=== PATIENT | female | born 1995 | race Caucasian/White ===

== ENCOUNTER 2022-08-24 13:22 | Emergency (ER) | payer SELFPAY ==
[~2022-08-24] VITALS: Ht 157.5 cm; Wt 52.3 kg
[2022-08-24 13:28] VITALS: TEMP 97.9
[2022-08-24] MEDS ORDERED: CLEOCIN HCL300 MG PO (15:31)
[2022-08-24 16:01] VITALS: BP 105/75; PULSE 90
[2022-08-28] MEDS ORDERED: PERCOCET 325 MG1 TA2 PO (04:00)
== END 2022-08-24 16:01 | disposition home or self-care (01) ==
LOC: COL.ER 13:22
DX: K04.7 Periapical abscess without sinus (principal); N92.6 Irregular menstruation, unspecified; Z88.1 Allergy status to other antibiotic agents; Z32.02 Encounter for pregnancy test, result negative; Z28.310 Unvaccinated for COVID-19